=== PATIENT | female | born 1970 | race American Indian/Alaskan Native ===

== ENCOUNTER 2022-01-06 17:51 | Emergency (ER) | payer MEDICARE ==
[2022-01-06 21:15] VITALS: BP 172/120
[2022-01-06] MEDS ORDERED: SODIUM CHLORIDE 0.9% 1000 ML 1,000 ML IV ONE (21:38)
[2022-01-06] MEDS ORDERED: ONDANSETRON 4 MG/2 ML INJ IV ONE (21:38)
[2022-01-06] MEDS ORDERED: dexAMETHasone 20 MG/5 ML VIAL IV ONE (21:38)
[2022-01-06] MEDS ORDERED: HYDROmorphone 1 MG/1 ML INJ IV ONE (21:40)
[2022-01-06 22:22] LABS: Mean Corpuscular HGB Conc 30 % (30-34); Mean Corpuscular Volume 75 fl (79-97); Platelet Count 417 K/mm3 (140-440); Red Blood Count 5.57 M/mm3 (3.65-5.03)
[2022-01-06 22:26] LABS: BUN/Creatinine Ratio 11; Blood Urea Nitrogen 9 mg/dL (7-17); Calcium 9.2 mg/dL (8.4-10.2)
[2022-01-06 22:27] LABS: Alanine Aminotransferase 9 units/L (7-56); Albumin 4.1 g/dL (3.9-5); Hematocrit 41.9 % (30.3-42.9); Hemoglobin 12.8 gm/dl (10.1-14.3); Hemolysis Index 4
--- NOTE | 2022-01-07 00:38 | Emergency Department Report ---
ED General Adult HPI - General Chief complaint: Extremity Injury, Lower Stated complaint: VOMITTING/COLD/DIARRHEA Source: patient Mode of arrival: Ambulatory Limitations: No Limitations - History of Present Illness Initial comments: Patient is a 51-year-old -[place] female with a history of chronic neuropathy, chronic osteoarthritis, hypertension, kidney stones and migraine headaches who presents to the ED with complaint of acute exacerbation of her chronic pain characterized by diffuse body aches and pains, multiple joint pains, nausea and vomiting and diarrhea for the last 1 week. Patient states that she ran out of her pain medications that she has been taking and has not been able to take anything for pain. Patient states that she recently relocated to [facility] about a month ago after she developed COVID-19 viral infection. Patient denies dizziness, syncope, fever, chills, abdominal pain, chest pain, shortness of breath, numbness and tingling or weakness of upper and lower extremities bilaterally, hematuria, dysuria, urinary frequency and urgency or neck pain. MD Complaint: Diffuse joint pains; chronic neuropathic pain -: Sudden, week(s) (1) Location: upper extremity (Bilateral arms), lower extremity (Bilateral legs) Radiation: back, distal Severity scale (0 -10): 8 Quality: aching, sharp Consistency: constant Improves with: none Worsens with: none Associated Symptoms: denies other symptoms. denies: confusion, chest pain, cough, diaphoresis, fever/chills, headaches, loss of appetite, malaise, nausea/vomiting, rash, seizure, shortness of breath, syncope, weakness Treatments Prior to Arrival: none - Related Data Previous Rx's Medication Instructions Recorded Last Taken Type Baclofen 20 mg PO Q8H PRN #30 tab 01/07/22 Unknown Rx DULoxetine [Cymbalta] 60 mg PO QDAY #30 capsule 01/07/22 Unknown Rx Ibuprofen [Motrin] 800 mg PO Q8HR PRN #30 tablet 01/07/22 Unknown Rx Pregabalin [Lyrica] 150 mg PO Q12H #120 cap 01/07/22 Unknown Rx predniSONE [Deltasone] 15 mg PO DAILY #15 01/07/22 Unknown Rx Allergies Allergy/AdvReac Type Severity Reaction Status Date / Time Sulfa (Sulfonamide Allergy Hives Verified 01/06/22 21:13 Antibiotics) ED Review of Systems ROS: Stated complaint: VOMITTING/COLD/DIARRHEA Other details as noted in HPI Constitutional: denies: chills, fever Eyes: denies: eye pain, eye discharge, vision change ENT: denies: ear pain, throat pain Respiratory: denies: cough, shortness of breath, wheezing Cardiovascular: denies: chest pain, palpitations Endocrine: no symptoms reported Gastrointestinal: denies: abdominal pain, nausea, diarrhea Genitourinary: denies: urgency, dysuria, discharge Musculoskeletal: back pain, arthralgia (Bilateral diffuse polyarticular joint pain), myalgia. denies: joint swelling Skin: denies: rash, lesions Neurological: denies: headache, weakness, paresthesias Psychiatric: denies: anxiety, depression Hematological/Lymphatic: denies: easy bleeding, easy bruising ED Past Medical Hx - Past Medical History Previous Medical History?: Yes Hx Hypertension: Yes Hx Headaches / Migraines: Yes Hx Kidney Stones: Yes Additional medical history: Neuropathy, - Surgical History Past Surgical History?: Yes Additional Surgical History: Covid, Pneumonia - Medications Home Medications: Home Medications Medication Instructions Recorded Confirmed Last Taken Type Baclofen 20 mg PO Q8H PRN #30 tab 01/07/22 Unknown Rx DULoxetine [Cymbalta] 60 mg PO QDAY #30 capsule 01/07/22 Unknown Rx Ibuprofen [Motrin] 800 mg PO Q8HR PRN #30 tablet 01/07/22 Unknown Rx Pregabalin [Lyrica] 150 mg PO Q12H #120 cap 01/07/22 Unknown Rx predniSONE [Deltasone] 15 mg PO DAILY #15 01/07/22 Unknown Rx ED Physical Exam - General Limitations: No Limitations General appearance: alert, in no apparent distress - Head Head exam: Present: atraumatic, normocephalic, normal inspection - Eye Eye exam: Present: normal appearance, PERRL, EOMI Pupils: Present: normal accommodation - ENT ENT exam: Present: normal exam, normal orophraynx, mucous membranes moist, TM's normal bilaterally, normal external ear exam - Neck Neck exam: Present: normal inspection, full ROM. Absent: tenderness - Respiratory Respiratory exam: Present: normal lung sounds bilaterally. Absent: respiratory distress, wheezes, rales, rhonchi, chest wall tenderness, accessory muscle use, decreased breath sounds, prolonged expiratory - Cardiovascular Cardiovascular Exam: Present: normal rhythm, tachycardia, normal heart sounds. Absent: systolic murmur, diastolic murmur, rubs, gallop - GI/Abdominal GI/Abdominal exam: Present: soft, normal bowel sounds. Absent: distended, tenderness, guarding, rebound, rigid, hyperactive bowel sounds, hypoactive bowel sounds, organomegaly - Extremities Exam Extremities exam: Present: normal inspection, full ROM, tenderness (Palpable diffuse upper and lower extremity joint tenderness), normal capillary refill. Absent: pedal edema, joint swelling - Back Exam Back exam: Present: normal inspection, full ROM, tenderness, muscle spasm, paraspinal tenderness. Absent: CVA tenderness (R), CVA tenderness (L), chuck tebral tenderness, rash noted - Neurological Exam Neurological exam: Present: alert, oriented X3, CN II-XII intact, normal gait, reflexes normal - Psychiatric Psychiatric exam: Present: normal affect, normal mood - Skin Skin exam: Present: warm, dry, intact, normal color. Absent: rash ED Course Vital Signs 01/06/22 21:09 Temperature 98.1 F Pulse Rate 109 H Respiratory 17 Rate Blood Pressure 172/120 [Right] O2 Sat by Pulse 99 Oximetry ED Medical Decision Making - Lab Data Result diagrams: 01/06/22 21:53 01/06/22 21:53 - Medical Decision Making This is a 51-year-old -[place] female with a history of chronic neuropathy, chronic osteoarthritis, hypertension, kidney stones and migraine headaches who presents to the ED with complaint of acute exacerbation of her chronic pain characterized by diffuse body aches and pains, multiple joint pains, nausea and vomiting and diarrhea for the last 1 week. Patient states that she ran out of her pain medications that she has been taking and has not been able to take anything for pain. Patient states that she recently relocated to [facility] about a month ago after she developed COVID-19 viral infection. In the ED, patient is alert and oriented x3 and is not in any distress. Patient was treated for pain in the ED. Lab test results were reviewed and are all nonactionable. On reevaluation, patient's pain is well controlled medication. Patient was discharged home on medications and advised to follow-up with her primary care physician in 7 to 10 days for reevaluation or return to the ED immediately if symptoms get worse. - Differential Diagnosis Chronic pain syndrome; chronic neuropathy; muscle spasm Critical care attestation.: If time is entered above; I have spent that time in minutes in the direct care of this critically ill patient, excluding procedure time. ED Disposition Clinical Impression: Chronic pain syndrome, Chronic neuropathic pain Disposition: HOME / SELF CARE / HOMELESS Is pt being admited?: No Does the pt Need Aspirin: No Condition: Stable Instructions: Neuropathic Pain, Chronic Pain, Adult Additional Instructions: All lab test results were reviewed and are all nonactionable. Therefore take medications with food, drink plenty of fluids and follow-up with your primary care physician in 5 to 7 days for reevaluation. Return to ED immediately if symptoms get worse. Prescriptions: Baclofen 20 mg PO Q8H PRN #30 tab PRN Reason: Muscle Spasm DULoxetine [Cymbalta] 60 mg PO QDAY #30 capsule predniSONE [Deltasone] 15 mg PO DAILY #15 Pregabalin [Lyrica] 150 mg PO Q12H #120 cap Ibuprofen [Motrin] 800 mg PO Q8HR PRN #30 tablet PRN Reason: Pain , Severe (7-10) Referrals: DECLAN GALLEGOS MD [Primary Care Provider] - 3-5 Days Time of Disposition: 00:34 Print Language: SLOVAK
[2022-01-07 00:52] LABS: Total Cells Counted 100
[2022-01-07 01:09] LABS: Basophils % (Manual) 0 % (0.0-1.8); Eosinophils % (Manual) 0 % (0.0-4.3)
[2022-01-07 01:10] LABS: Hypochromasia 1+
[2022-01-07 01:14] LABS: Ovalocytes Few; Platelet Estimate Consistent w Auto
== END 2022-01-07 01:49 | disposition home or self-care (01) ==
LOC: ED 17:51
DX: G89.29 Other chronic pain (principal); M79.2 Neuralgia and neuritis, unspecified; Z88.2 Allergy status to sulfonamides; I10 Essential (primary) hypertension
CPT/HCPCS: 36415; 80053; 85007; 85025; 96361; 96374; 96375; 99283; J1100; J1170; J2405; J7030; Q0162

== ENCOUNTER 2022-03-06 19:41 | Emergency (ER) | payer MEDICARE, MEDICAID ==
[2022-03-06 22:27] VITALS: BP 138/96
[2022-03-06] MEDS ORDERED: ONDANSETRON 4 MG ODT TAB PO ONE (22:47)
[2022-03-06] MEDS ORDERED: BUTALB/ACETAMINOPHEN/CAFFEINE TAB PO ONE (22:47)
[2022-03-06] MEDS ORDERED: predniSONE 20 MG TAB PO ONE (22:48)
--- NOTE | 2022-03-06 22:51 | Emergency Department Report ---
ED Headache HPI - General Chief Complaint: Pain General Stated Complaint: MIGRAINE & NEUROPATHY PAIN Time Seen by Provider: 03/06/22 22:39 - History of Present Illness Initial Comments: 51-year-old black female with a past medical history of hypertension, osteoarthritis, migraine headaches, and neuropathies presents to the emergency department for evaluation of 1-1/2-day history with nausea. She denies vomiting, vision changes, dizziness, photophobia, and fever. She states that she usually takes Fioricet for headache but she recently moved here from [place] and has not had a time to establish a primary care provider or pain management doctor to manage her headaches. She also requests refill of home medications. Timing/Duration: other (While I have days) Quality: severe Head Injury Location: frontal Recent Head Trauma: chronic headaches Associated Symptoms: denies: confusion, fatigue, facial pain, fever/chills, flushing, loss of consciousness, nausea/vomiting, nasal congestion, nasal drainage, numbness in legs/feet, seizures, sinus infection, stiff neck, vision changes, weakness Allergies/Adverse Reactions: Allergies Sulfa (Sulfonamide Antibiotics) Allergy (Verified 01/06/22 21:13) Hives Home Medications: Ambulatory Orders Baclofen 20 mg PO Q8H PRN #30 tab 01/07/22 DULoxetine [Cymbalta] 60 mg PO QDAY #30 capsule 01/07/22 Ibuprofen [Motrin] 800 mg PO Q8HR PRN #30 tablet 01/07/22 Pregabalin [Lyrica] 150 mg PO Q12H #120 cap 01/07/22 predniSONE [Deltasone] 15 mg PO DAILY #15 01/07/22 Baclofen 20 mg PO TID 30 Days #90 tab 03/06/22 Butalb/Acetaminophen/Caffeine [Fioricet 50-300-40 mg CAP] 1 cap PO Q6HR PRN #21 cap 03/06/22 Pregabalin [Lyrica] 150 mg PO BID 30 Days #60 cap 03/06/22 ED Review of Systems ROS: Stated complaint: MIGRAINE & NEUROPATHY PAIN Other details as noted in HPI Comment: All other systems reviewed and negative Constitutional: denies: chills, fever Eyes: denies: eye discharge, vision change ENT: denies: ear pain, throat pain, dental pain, hearing loss, epistaxis, congestion Respiratory: denies: cough, shortness of breath, SOB with exertion, SOB at rest Cardiovascular: denies: chest pain, palpitations, dyspnea on exertion Gastrointestinal: denies: abdominal pain, nausea, vomiting Genitourinary: denies: urgency, dysuria, frequency, hematuria Musculoskeletal: denies: back pain Skin: denies: rash, lesions Neurological: headache. denies: weakness, numbness, paresthesias, confusion, abnormal gait, vertigo ED Past Medical Hx - Past Medical History Hx Hypertension: Yes Hx Headaches / Migraines: Yes Hx Kidney Stones: Yes Additional medical history: Neuropathy, - Surgical History Additional Surgical History: Covid, Pneumonia - Medications Home Medications: Home Medications Medication Instructions Recorded Confirmed Last Taken Type Baclofen 20 mg PO Q8H PRN #30 tab 01/07/22 Unknown Rx DULoxetine [Cymbalta] 60 mg PO QDAY #30 capsule 01/07/22 Unknown Rx Ibuprofen [Motrin] 800 mg PO Q8HR PRN #30 tablet 01/07/22 Unknown Rx Pregabalin [Lyrica] 150 mg PO Q12H #120 cap 01/07/22 Unknown Rx predniSONE [Deltasone] 15 mg PO DAILY #15 01/07/22 Unknown Rx Baclofen 20 mg PO TID 30 Days #90 tab 03/06/22 Unknown Rx Butalb/Acetaminophen/Caffeine 1 cap PO Q6HR PRN #21 cap 03/06/22 Unknown Rx [Fioricet 50-300-40 mg CAP] Pregabalin [Lyrica] 150 mg PO BID 30 Days #60 cap 03/06/22 Unknown Rx ED Physical Exam - General Limitations: No Limitations General appearance: alert, in no apparent distress - Head Head exam: Present: atraumatic, normocephalic - Eye Eye exam: Present: normal appearance. Absent: conjunctival injection - Neck Neck exam: Present: normal inspection, full ROM. Absent: tenderness, mening ismus, lymphadenopathy - Respiratory Respiratory exam: Present: normal lung sounds bilaterally. Absent: respiratory distress, wheezes, rales, rhonchi, stridor, chest wall tenderness - Cardiovascular Cardiovascular Exam: Present: tachycardia, normal heart sounds - GI/Abdominal GI/Abdominal exam: Present: soft, normal bowel sounds. Absent: distended, tenderness, guarding, rebound, rigid - Extremities Exam Extremities exam: Present: normal inspection, normal capillary refill - Back Exam Back exam: Present: normal inspection. Absent: CVA tenderness (R), CVA tenderness (L), vertebral tenderness - Neurological Exam Neurological exam: Present: alert, oriented X3, CN II-XII intact, normal gait, reflexes normal. Absent: motor sensory deficit - Psychiatric Psychiatric exam: Present: normal affect, normal mood - Skin Skin exam: Present: warm, dry, intact, normal color ED Course Vital Signs 03/06/22 22:27 Temperature 97.8 F Pulse Rate 112 H Respiratory 20 Rate Blood Pressure 138/96 [Right] O2 Sat by Pulse 99 Oximetry ED Medical Decision Making - Medical Decision Making 51-year-old black female with a past medical history of hypertension, osteoarthritis, migraine headaches, and neuropathies presents to the emergency department for evaluation of 1-1/2-day history with nausea. She denies vomiting, vision changes, dizziness, photophobia, and fever. She states that she usually takes Fioricet for headache but she recently moved here from [place] and has not had a time to establish a primary care provider or pain management doctor to manage her headaches. She also requests refill of home medications. Patient without acute abnormalities noted on exam, and no neurologic deficits noted. Patient was given Fioricet and Zofran for headache and nausea and discharged home with prescription for Fioricet to use as needed for headache. She was also given a refill of home medications of Lyrica and baclofen. She was given name of a primary care provider along with pain management doctor to follow-up with. She was advised to return to the emergency department for any concerning symptoms. She verbalized understanding of and agreement with plan of care. Critical care attestation.: If time is entered above; I have spent that time in minutes in the direct care of this critically ill patient, excluding procedure time. ED Disposition Clinical Impression: Medication refill Headache Qualifiers: Headache type: unspecified Headache chronicity pattern: acute headache Intractability: not intractable Qualified Code(s): R51.9 - Headache, unspecified Disposition: 01 HOME / SELF CARE / HOMELESS Is pt being admited?: No Does the pt Need Aspirin: No Condition: Stable Instructions: Acetaminophen; Butalbital; Caffeine tablets or capsules, Baclofen tablets, Pregabalin capsules, General Headache Without Cause, [id number] Additional Instructions: Take medication as prescribed. Follow-up with primary care provider and pain management for further evaluation and management. Return to the emergency department as needed. Prescriptions: Baclofen 20 mg PO TID 30 Days #90 tab Butalb/Acetaminophen/Caffeine [Fioricet 50-300-40 mg CAP] 1 cap PO Q6HR PRN #21 cap PRN Reason: Headache Pregabalin [Lyrica] 150 mg PO BID 30 Days #60 cap Referrals: DECLAN GALLEGOS MD [Staff Physician] - 3-5 Days LES JOHNSON DO [Referring] - 3-5 Days Time of Disposition: 22:57
== END 2022-03-06 23:20 | disposition home or self-care (01) ==
LOC: ED 19:41
DX: R51.9 Headache, unspecified (principal); Z76.0 Encounter for issue of repeat prescription; I10 Essential (primary) hypertension; N20.0 Calculus of kidney
CPT/HCPCS: 99282; J3490; Q0162

== ENCOUNTER 2022-03-31 12:41 | Emergency (ER) | payer MEDICARE, MEDICAID ==
--- NOTE | 2022-03-31 13:32 | Emergency Department Report ---
HPI - General Chief Complaint: Chest Pain Time Seen by Provider: 03/31/22 13:16 - HPI HPI: The patient ran out of her hydromorphone as well as all her other medicines that she uses to treat her chronic bilateral lower extremity neuropathy. She says the pain in her lower extremities is severe sharp nonradiating and so bad that is giving her chest pain. She reports the chest pain as a sharp presternal nonradiating pain that is made better and worse with nothing. She denies nausea vomiting fever chills shortness of breath diaphoresis or any other associated symptoms. The patient is from [place]. ED Past Medical Hx - Past Medical History Hx Hypertension: Yes Hx Headaches / Migraines: Yes Hx Kidney Stones: Yes Additional medical history: Neuropathy, - Surgical History Additional Surgical History: Covid, Pneumonia - Medications Home Medications: Home Medications Medication Instructions Recorded Confirmed Last Taken Type Baclofen 20 mg PO Q8H PRN #30 tab 01/07/22 Unknown Rx Pregabalin [Lyrica] 150 mg PO Q12H #120 cap 01/07/22 Unknown Rx predniSONE [Deltasone] 15 mg PO DAILY #15 01/07/22 Unknown Rx Butalb/Acetaminophen/Caffeine 1 cap PO Q6HR PRN #21 cap 03/06/22 Unknown Rx [Fioricet 50-300-40 mg CAP] Baclofen 20 mg PO TID 30 Days #90 tab 03/31/22 Unknown Rx DULoxetine [Cymbalta] 60 mg PO QDAY #30 capsule 03/31/22 Unknown Rx Ibuprofen [Motrin 800 MG tab] 800 mg PO Q8HR PRN #30 tablet 03/31/22 Unknown Rx Pregabalin [Lyrica] 150 mg PO BID 30 Days #60 cap 03/31/22 Unknown Rx ED Review of Systems ROS: Stated complaint: CHEST PAIN Other details as noted in HPI Other: All systems reviewed and negative Physical Exam - Physical Exam Physical Exam: Physical Exam: Constitutional: AAOX3. No acute distress. No diaphoresis. HENT: Normocephalic. Pupils equal and reactive. No throat edema or erythema. Neck: No neck rigidity or tenderness. Cardiovascular: Heart sounds: No murmur. Normal rate and regular rhythm. Pulses: Intact distal pulses. Lungs: No wheezing or rales. Chest wall: No tenderness. Abdominal: No distension. No mass/pulsatile mass. No abdominal tenderness, guarding nor rebound. Musculoskeletal: Normal range of motion. No edema, No calf TTP. Skin: Warm and dry. Neurological: Alert and oriented to person, place, and time. Psychiatric: Mood and affect normal. Normal cognition and memory. Normal judgement. ED Course - Reevaluation(s) Reevaluation #1: 03/31/22 15:34 Patient CBC and chemistries were within normal limits. Her troponin was negative. Her chest x-ray was read as possible pulmonary venous engorgement however she does not seem to be in heart failure clinically to me. I gave her some Dilaudid and the patient felt better after that I will refill her usual medications and she will follow-up with her PCP as soon as possible in [place]. ED Medical Decision Making - Lab Data Result diagrams: 03/31/22 13:27 03/31/22 13:27 Critical care attestation.: If time is entered above; I have spent that time in minutes in the direct care of this critically ill patient, excluding procedure time. ED Disposition Clinical Impression: Chest pain, Chronic pain Disposition: 01 HOME / SELF CARE / HOMELESS Is pt being admited?: Yes Does the pt Need Aspirin: No Condition: Stable Instructions: Nonspecific Chest Pain, Adult Prescriptions: Baclofen 20 mg PO TID 30 Days #90 tab DULoxetine [Cymbalta] 60 mg PO QDAY #30 capsule Pregabalin [Lyrica] 150 mg PO BID 30 Days #60 cap Ibuprofen [Motrin 800 MG tab] 800 mg PO Q8HR PRN #30 tablet PRN Reason: Pain , Severe (7-10) Time of Disposition: 15:40 Print Language: BAHRAINI
--- NOTE | 2022-03-31 13:54 | XRay Report ---
CHEST 1 VIEW 03/31/2022 1:23 PM INDICATION / CLINICAL INFORMATION: Chest Pain. COMPARISON: None available. FINDINGS: SUPPORT DEVICES: None. HEART / MEDIASTINUM: Cardiac LUNGS / PLEURA: Mild increased pulmonary vascular the perihilar regions and into the lower lungs No p neumothorax. Signer Name: Ravi Mejia MD Signed: 03/31/2022 1:50 PM Workstation Name: [id number]
[2022-03-31 14:26] LABS: Basophils # (Auto) 0.1 K/mm3 (0.0-0.1); Basophils % (Auto) 0.6 % (0.0-1.8); Eosinophils % (Auto) 0.4 % (0.0-4.3); Lymphocytes % (Auto) 27.9 % (13.4-35.0); Mean Corpuscular HGB Conc 30 % (30-34); Mean Corpuscular Volume 77 fl (79-97); Monocytes # (Auto) 0.6 K/mm3 (0.0-0.8); Monocytes % (Auto) 5.8 % (0.0-7.3); Platelet Count 306 K/mm3 (140-440); Red Blood Count 5.08 M/mm3 (3.65-5.03)
[2022-03-31 14:27] LABS: Hematocrit 39.3 % (30.3-42.9); Red Cell Distribution Width 20.4 % (13.2-15.2)
[2022-03-31 14:54] LABS: Alanine Aminotransferase 12 units/L (7-56); Albumin 3.9 g/dL (3.9-5); BUN/Creatinine Ratio 8; Blood Urea Nitrogen 9 mg/dL (7-17); Calcium 9.1 mg/dL (8.4-10.2); Hemolysis Index 11
[2022-03-31] MEDS ORDERED: HYDROmorphone 2 MG/1 ML INJ IM ONE (15:28)
[2022-03-31 16:05] VITALS: BP 142/92
== END 2022-03-31 16:05 | disposition home or self-care (01) ==
LOC: ED 12:41
DX: R07.9 Chest pain, unspecified (principal); G89.29 Other chronic pain; I10 Essential (primary) hypertension; G43.909 Migraine, unspecified, not intractable, without status migrainosus; N20.0 Calculus of kidney
CPT/HCPCS: 36415; 71045; 80053; 84484; 85025; 93005; 96372; 99284; J1170

== ENCOUNTER 2022-05-16 10:01 | Emergency (ER) | payer MEDICARE, MEDICAID ==
[2022-05-16 10:32] VITALS: BP 151/99
[2022-05-16] MEDS ORDERED: SODIUM CHLORIDE 0.9% 1000 ML 1,000 ML IV ONE (13:24)
[2022-05-16] MEDS ORDERED: diphenhydrAMINE 50 MG/ML VIAL IV ONE (13:24)
[2022-05-16] MEDS ORDERED: METOCLOPRAMIDE 10 MG/2 ML INJ IV ONE (13:24)
--- NOTE | 2022-05-16 14:06 | Emergency Department Report ---
ED Headache HPI - General Chief Complaint: Headache Stated Complaint: HEADACHE/PAIN IN LEGS/HANDS Time Seen by Provider: 05/16/22 12:55 Source: patient, RN notes reviewed Exam Limitations: no limitations - History of Present Illness Initial Comments: This is a 51-year-old female nontoxic, well nourished in appearance, no acute signs of distress presents to the ED with c/o of acute on chronic headache and generalized neuropathy x several years. Patient that he has been taking Fioricet but has run out. Patient describes headache as diffuse with level of 3 out of 10. Patient denies thunderclap headache. Patient denies any radiation of pain. Patient denies any head trauma. Patient denies any visual changes. Patient denies worse headache. Patient stated that darkness makes headache better and bright lights make the headache worse. Patient denies any numbness, tingling, fever, chills, nausea, vomiting, chest pain, shortness of breath, stiff neck. Patient denies facial drooping or one sided weakness. Patient denies any radiation of pain. Patient stated allergies to sulfa. Timing/Duration: episodic Quality: mild, achy Head Injury Location: other (diffuse) Recent Head Trauma: no recent headache/trauma, occasional headaches Associated Symptoms: denies symptoms. denies: confusion, fatigue, facial pain, fever/chills, flushing, loss of consciousness, nausea/vomiting, nasal congestion, nasal drainage, numbness in legs/feet, rash, seizures, sinus infection, stiff neck, vision changes, weakness Allergies/Adverse Reactions: Allergies Sulfa (Sulfonamide Antibiotics) Allergy (Verified 01/06/22 21:13) Hives Home Medications: Ambulatory Orders Baclofen 20 mg PO Q8H PRN #30 tab 01/07/22 Pregabalin [Lyrica] 150 mg PO Q12H #120 cap 01/07/22 predniSONE [Deltasone] 15 mg PO DAILY #15 01/07/22 Butalb/Acetaminophen/Caffeine [Fioricet 50-300-40 mg CAP] 1 cap PO Q6HR PRN #21 cap 03/06/22 Baclofen 20 mg PO TID 30 Days #90 tab 03/31/22 DULoxetine [Cymbalta] 60 mg PO QDAY #30 capsule 03/31/22 Ibuprofen [Motrin 800 MG tab] 800 mg PO Q8HR PRN #30 tablet 03/31/22 Oxycodone HCl/Acetaminophen [Percocet 10/325 mg] 1 each PO Q6HR PRN 3 Days #12 tab 03/31/22 Pregabalin [Lyrica] 150 mg PO BID 30 Days #60 cap 03/31/22 Butalb/Acetaminophen/Caffeine [Fioricet 50-300-40 mg CAP] 1 cap PO Q8HR PRN #12 cap 05/16/22 ED Review of Systems ROS: Stated complaint: HEADACHE/PAIN IN LEGS/HANDS Other details as noted in HPI Comment: All other systems reviewed and negative Constitutional: denies: chills, fever Eyes: denies: eye pain, eye discharge, vision change ENT: denies: ear pain, throat pain Respiratory: denies: cough, shortness of breath, wheezing Cardiovascular: denies: chest pain, palpitations Endocrine: no symptoms reported Gastrointestinal: denies: abdominal pain, nausea, diarrhea Genitourinary: denies: urgency, dysuria, discharge Musculoskeletal: denies: back pain, joint swelling, arthralgia Skin: denies: rash, lesions Neurological: headache. denies: weakness, numbness, paresthesias, confusion, abnormal gait, vertigo Psychiatric: denies: anxiety, depression Hematological/Lymphatic: denies: easy bleeding, easy bruising ED Past Medical Hx - Past Medical History Hx Hypertension: Yes Hx Headaches / Migraines: Yes Hx Kidney Stones: Yes Additional medical history: Neuropathy, - Surgical History Additional Surgical History: Covid, Pneumonia - Social History Smoking Status: Never Smoker - Medications Home Medications: Home Medications Medication Instructions Recorded Confirmed Last Taken Type Baclofen 20 mg PO Q8H PRN #30 tab 01/07/22 Unknown Rx Pregabalin [Lyrica] 150 mg PO Q12H #120 cap 01/07/22 Unknown Rx predniSONE [Deltasone] 15 mg PO DAILY #15 01/07/22 Unknown Rx Butalb/Acetaminophen/Caffeine 1 cap PO Q6HR PRN #21 cap 03/06/22 Unknown Rx [Fioricet 50-300-40 mg CAP] Baclofen 20 mg PO TID 30 Days #90 tab 03/31/22 Unknown Rx DULoxetine [Cymbalta] 60 mg PO QDAY #30 capsule 03/31/22 Unknown Rx Ibuprofen [Motrin 800 MG tab] 800 mg PO Q8HR PRN #30 tablet 03/31/22 Unknown Rx Oxycodone HCl/Acetaminophen 1 each PO Q6HR PRN 3 Days #12 tab 03/31/22 Unknown Rx [Percocet 10/325 mg] Pregabalin [Lyrica] 150 mg PO BID 30 Days #60 cap 03/31/22 Unknown Rx Butalb/Acetaminophen/Caffeine 1 cap PO Q8HR PRN #12 cap 05/16/22 Unknown Rx [Fioricet 50-300-40 mg CAP] ED Physical Exam - General Limitations: No Limitations General appearance: alert, in no apparent distress - Head Head exam: Present: atraumatic, normocephalic - Eye Eye exam: Present: normal appearance, PERRL, EOMI Pupils: Present: normal accommodation - ENT ENT exam: Present: normal exam, normal orophraynx - Neck Neck exam: Present: normal inspection, full ROM. Absent: tenderness, meningismus, lymphadenopathy - Respiratory Respiratory exam: Present: normal lung sounds bilaterally. Absent: respiratory distress, wheezes, rales, rhonchi, stridor, chest wall tenderness, accessory muscle use, decreased breath sounds, prolonged expiratory - Cardiovascular Cardiovascular Exam: Present: regular rate, normal rhythm, normal heart sounds. Absent: bradycardia, tachycardia, irregular rhythm, systolic murmur, diastolic murmur, rubs, gallop - GI/Abdominal GI/Abdominal exam: Present: soft, normal bowel sounds. Absent: distended, tenderness, guarding, rebound, rigid, diminished bowel sounds - Extremities Exam Extremities exam: Present: normal inspection, full ROM, normal capillary refill. Absent: tenderness - Back Exam Back exam: Present: normal inspection, full ROM. Absent: tenderness, CVA tenderness (R), CVA tenderness (L), muscle spasm, paraspinal tenderness, vertebral tenderness, rash noted - Neurological Exam Neurological exam: Present: alert, oriented X3, normal gait - Expanded Neurological Exam Expanded Patient oriented to: Present: person, place, time Cranial nerves: EOM's Intact: Normal, Facial Sensation: Normal Cerebellar function: Finger to Nose: Normal Upper motor neuron: Pronator Drift: Normal, Sensory Extinction: Normal Motor strength exam: RUE: 5, LUE: 5, RLE: 5, LLE: 5 Best Eye Response ([place]): (4) open spontaneously Best Motor Response ([place]): (6) obeys commands Best Verbal Response ([place]): (5) oriented [place] Total: 15 - Psychiatric Psychiatric exam: Present: normal affect, normal mood - Skin Skin exam: Present: warm, dry, intact, normal color. Absent: rash ED Course Vital Signs 05/16/22 10:29 Temperature 98.7 F Pulse Rate 96 H Respiratory 18 Rate Blood Pressure 151/99 O2 Sat by Pulse 100 Oximetry - Reevaluation(s) Reevaluation #1: 05/16/22 14:07 Patient is speaking in full sentences with no signs of distress noted. ED Medical Decision Making - Medical Decision Making This is a 51-year-old female that presents with chronic headache. Patient is stable and was examined by me. Patient is neurologically stable. There is no stiff neck or neck pain. Vital signs are stable. Patient is afebrile. Patient received Benadryl, Reglan, and 1 L of normal saline which the patient stated that headache has subsided and resolved. Patient was instructed not to operate any machinery after discharged due to drowsiness of Benadryl. Patient stated that a family member will drive patient home. Patient is discharged with Fioricet. Patient was referred to Follow-up with a primary care/neurologist doctor in 3-5 days or if symptoms worsen and continue return to emergency room as soon as possible. At time of discharge, the patient does not seem toxic or ill in appearance. No acute signs of distress noted. Patient agrees to discharge treatment plan of care. No further questions noted by the patient. Critical care attestation.: If time is entered above; I have spent that time in minutes in the direct care of this critically ill patient, excluding procedure time. ED Disposition Clinical Impression: Chronic headache Qualifiers: Headache type: unspecified Intractability: not intractable Qualified Code(s): R51.9 - Headache, unspecified; G89.29 - Other chronic pain Disposition: 01 HOME / SELF CARE / HOMELESS Is pt being admited?: No Does the pt Need Aspirin: No Condition: Stable Additional Instructions: Follow-up with a primary care doctor in 3-5 days or if symptoms worsen and continue return to emergency room as soon as possible. Prescriptions: Butalb/Acetaminophen/Caffeine [Fioricet 50-300-40 mg CAP] 1 cap PO Q8HR PRN #12 cap PRN Reason: Headache Referrals: PRIMARY CAREMD [Referring] - 3-5 Days DECLAN GALLEGOS MD [Staff Physician] - 3-5 Days Time of Disposition: 15:23
== END 2022-05-16 16:00 | disposition home or self-care (01) ==
LOC: ED 10:01
DX: G43.909 Migraine, unspecified, not intractable, without status migrainosus (principal); G62.9 Polyneuropathy, unspecified; I10 Essential (primary) hypertension; Z87.442 Personal history of urinary calculi; Z98.890 Other specified postprocedural states
CPT/HCPCS: 96361; 96374; 96375; 99282; J1200; J2765; J7030